=== PATIENT | female | born 1950 | race Caucasian/White ===

== ENCOUNTER 2016-10-31 02:12 | Inpatient (IN) | payer OTHER ==
[~2016-10-31] VITALS: Ht 162.6 cm; Wt 99.8 kg
[~2016-10-31 02:12] MED LIST: ADVAIR 250-501 EACH INH; ASPIRIN325 M2 PO; ATIVAN1 M1 PO; CARDIZEM CD180 M1 PO; DOCUSATE SODIU100 M3 PO; GLUCOPHAGE500 M1 PO; HYDROMORPHONE HC2 M1 PO; LEXAPRO10 M1 PO; LISINOPRIL5 M1 PO; METFORMIN HCL500 M4 PO; MIRALAX119 GM PO; MS CONTIN15 M2 PO; MULTI-DAY VITA1 EACH PO; NASACORT16.9 ML NASB; TRAMADOL HCL50 M1 PO; TUMS; VITAMIN D2000 UNI1 PO; WELLBUTRIN75 M1 PO
--- NOTE | 2016-10-31 10:16 | Patient Discharge Instructions ---
Discharge Instructions General Discharge Information You were seen/treated for: joint pain You had these procedures: Left total knee replacement No bath, but you may shower: Yes Other wound care: Keep incisions clean and dry, may shower, no bathing Diet Recommended Diet: Diabetic, Heart Healthy Activity Activity Self Limited: Yes Activity Limited to: Weight bear as tolerated Acute Coronary Syndrome Inclusion Criteria At DC or during hospital stay patient has or had the following: ACS DIAGNOSIS No Discharge Core Measures Meds if any: Prescribed or Continued at Discharge Meds if any: NOT Prescribed or Continued at Discharge Congestive Heart Failure Inclusion Criteria At DC or during hospital stay patient has or had the following: CHF DIAGNOSIS No Discharge Core Measures Meds if any: Prescribed or Continued at Discharge Meds if any: NOT Prescribed or Continued at Discharge Cerebrovascular accident Inclusion Criteria At DC or during hospital stay patient has or had the following: CVA/TIA Diagnosis No Discharge Core Measures Meds if any: Prescribed or Continued at Discharge Meds if any: NOT Prescribed or Continued at Discharge Venous thromboembolism Inclusion Criteria VTE Diagnosis No VTE Type NONE VTE Confirmed by (Test) NONE Discharge Core Measures - Per Current guidelines, there needs to be overlap - treatment for the first 5 days of Warfarin therapy. - If discharged on Warfarin prior to 5 days of - overlap therapy, the patient will need to be - assessed for post discharge needs including - *Post discharge parental anticoagulation - *Warfarin and/or parental anticoagulation education - *Follow up date to check INR post discharge At least 5 days overlap therapy as Inpatient No Meds if any: Prescribed or Continued at Discharge Note: Overlap Therapy is Warfarin and Anticoagulant Meds if any: NOT Prescribed or Continued at Discharge
--- NOTE | 2016-10-31 10:29 | Admission Core Measures ---
Admission Meds I reviewed the following Meds: Current Medications Sig/Mariano Start time Last Medication Dose Stop Time Status Admin Acetaminophen 975 MG ONCE 10/31 NR (Tylenol) 10/31 2358 Cefazolin Sodium 2,000 MG ONCE 10/31 NR (Kefzol-Ancef Inj) 10/31 2358 Oxycodone HCl 10 MG ONCE 10/31 0000 NR (Roxicodone) 10/31 2358 Acute Coronary Syndrome Inclusion Criteria ACS Diagnosis No Inpatient Core Measures LDL Reminder: If No, please order W/I first 24hr of stay Congestive Heart Failure Inclusion Criteria CHF Diagnosis No Cerebrovascular accident Inclusion Criteria CVA/TIA Diagnosis No Inpatient Core Measures Bedside Swallow Eval Reminder: If BSE failed, place ST order Antithrombotic Reminder: Order Antithrombotic Medication by end of day 2 Antithrombotic Reminder: Document Reason Antithrombotic Not ordered by end of day 2 AFIB/Flutter Reminder: If Present, add to problem list AFIB/Flutter Reminder: Order Anticoag Medication for pts with AFIB/Flutter Atherosclerosis Reminder: If Present, add to problem list LDL Reminder: If No, please order W/I first 24hr of stay PT Order Reminder: If No, please order Venous thromboembolism Inpatient Core Measures VTE Risk Factors: Age > 40, Surgery No [facility] VTE prophylaxis d/t No contraindications No VTE Pharm Prophylaxis d/t No contraindications Inclusion Criteria - Per Current guidelines, there needs to be overlap - treatment for the first 5 days of Warfarin therapy. - Parenteral Anticoagulation (IV or SC) needs to be - given along with Warfarin therapy. VTE Diagnosis No VTE Type NONE VTE Confirmed by (Test) NONE Problem List As ranked by this Provider includes Assessment & Plan 1. Status post total knee replacement, left HOME MEDS Home Med List Aspirin (Aspirin*) 325 MG TABLET 1 TAB PO BID BLOOD THINNER Bupropion HCl (Wellbutrin) 75 MG TABLET 1 TAB PO TID DEPRESSION (Reported) Cholecalciferol (Vitamin D3) (Vitamin D) 2,000 UNIT TABLET 1 TAB PO DAILY SUPPLEMENT (Reported) Diltiazem HCl (Cardizem Cd) 180 MG CAP.ER.24H 1 CAP PO QPM BP (Reported) Escitalopram Oxalate (Lexapro) 10 MG TABLET 1 TAB PO DAILY DEPRESSION ( Reported) Metformin Hydochloride (Glucophage) 500 MG TABLET 1 TAB PO NIGHTLY DM II ( Reported) Triamcinolone Acetonide (Nasacort) 16.9 ML SPRAY 1 SPRAY NASB DAILY ALLERGIES (Reported)
--- NOTE | 2016-10-31 10:31 | Surg Short-stay <48hrs Dis Sum ---
Visit Information Visit Dates Admission Date: 10/31/16 Discharge Date: 11/02/16 Surgical Short Stay DC Summary Admission Diagnosis: joint pain Final Diagnosis: s/p Left TKR Procedure(s): Left tkr - see operative report Summary/Significant Findings: Pt underwent Left TKR by Dr Winters - she tolerated the procedure well and was brought to the PACU in stable condition. Postoperatively, she was able to void spontaneously, her pain was well controlled with oral medication and she worked with PT. She was deemed stable for discharge and was cleared by PT to be discharged home with services. Condition at Discharge: good Discharge Disposition: home health services Discharge instructions provided to patient/family: Yes Post discharge follow-up plan: Dr Winters 6 weeks. Recommend follow up with PCP withini 2 weeks.
[2016-10-31] MEDS ORDERED: TUMS ULTRA400 M1 PO (12:49)
[2016-10-31] MEDS ORDERED: COLACE100 M1 PO (13:02)
[2016-10-31] MEDS ORDERED: ASPIRIN325 M2 PO (13:02)
[2016-10-31] MEDS ORDERED: MS CONTIN15 M2 PO (13:02)
[2016-10-31] MEDS ORDERED: DILAUDID4 M1 PO (13:02)
[2016-10-31] MEDS ORDERED: MIRALAX17 G1 PO (13:02)
--- NOTE | 2016-10-31 13:41 | Operative Report ---
Operative/Inv Procedure Report Surgery Date: 10/31/16 Name of Procedure: Left total knee replacement Pre-Operative Diagnosis: Primary left knee DJD Post-Operative Diagnosis: Same Estimated Blood Loss: 50ml to 100ml Surgeon/Home Aid: RENEE MARLEY,TATA Crawford Anesthesia: block Operative/Procedure Note Note: Description of Procedure: The patient was taken to the operating room and positively identified. After induction of spinal anesthesia and administration of appropriate pre-operative antibiotics, the patient was positioned supine on the operating room table and all bony prominences were well padded. A well-padded pneumatic tourniquet was placed on the left upper thigh. After performing a surgical timeout, the left lower extremity was prepped and draped in the usual sterile fashion. After exsanguination with Esmarch the tourniquet was inflated to 250mm of mercury. A standard medial parapatellar approach was made to the knee. This was carried down through skin and subcutaneous tissue to the level of the fascia. Meticulous hemostasis was maintained with Bovie electrocautery. The extensor mechanism and patellar retinaculum were opened sharply and the patella was everted. The infrapatellar fat was resected in order to improve exposure. Osteophytes were trimmed from the patella and femoral condyles and the patella was re-everted and tucked laterally. A medial release was performed and the cruciate ligaments were resected. The tibia was then subluxed anteriorly. Utilizing the appropriate extra-medullary guide, the proximal tibia was trimmed perpendicular to the long axis of the tibial shaft. Attention was then turned to the femur. After opening the medullary canal, the distal femoral cut was made in 6 degrees of valgus utilizing the appropriate intra-medullary guide. The extension gap was checked and found to be appropriate. The femur was then sized and the remainder of the femoral cuts were made with a size 3 4-in-1 femoral cutting guide. The flexion gap was checked and found to be symmetric and appropriate. The knee was then trialed with a size 3 femoral component, a size 3 tibial component and a size 9 mm polyethylene insert. The patella was trimmed to accept an A 32 patella. This yielded excellent range of motion, stability and patellar tracking. All trial components were removed and the knee was copiously irrigated with sterile saline. All components were cemented into place with Lauren Simplex cement. All the components were of the Lauren Triathlon knee system of the above stated sizes. The knee was again irrigated after cementation. The extensor mechanism and patellar retinaculum were repaired using interrupted #1 vicryl suture. The skin was re-approximated with 2-0 vicryl and closed with bambi. A sterile dressing was applied, the tourniquet was deflated, the patient was awakened and taken to the recovery room in satisfactory condition.
[2016-10-31 16:00] VITALS: BP 120/76
--- NOTE | 2016-10-31 16:00 | NUR ---
PT ARRIVED TO FLOOR VIA STRETCHER FROM PACU, AO, 3LNC, TRANSFERED TO BED, HOOKS IN PLACE, IV INTACT W/ FLUIDS RUNNING, C/O PAIN /10, ONC-Q PUMP IN PLACE @ 10ML/HR. ORIENTED TO ROOM AND CALL LIGHT, ADMISSION COMPLETE. WILL CONTINUE TO MONITOR.
--- NOTE | 2016-10-31 16:00 | PN- Orthopedic ---
Subjective Subjective: poc s/p left tka no major complaints denies cp, sob, no n+v with ice chips onq block in place Objective Vital Signs and I&Os vss Physical Exam: cv: rrr lungs: clear abd: soft ext: distal cms intact drsg dry onq block intact osorio: clear urine Assessment/Plan Assessment/Plan ortho stable plan asa for dvt prophylaxis osorio to gravity til am may be oob to chair/ambulate tonight titrate pain meds home d/c plan Core Measures/Miscellaneous Venous Thromboembolism VTE Risk Factors: Age > 40, Obesity, Surgery VTE Contraindications: No Contraindications VTE Diagnosis: No VTE Type: NONE VTE Confirmed by (Test): NONE Beta Liest Is Beta Liset a Home Med? No Antibiotics Is Patient on Antibiotics? Yes
[2016-10-31 18:12] VITALS: BP 146/92
[2016-10-31 20:04] VITALS: BP 130/90
--- NOTE | 2016-10-31 21:46 | NUR ---
THIS RN ASSUMED CARE OF THIS PATIENT AT 1999. PT A/0 X3. PT ON RA, PAIN MILD PER PT TO L KNEE SX SITE. BRANDEN C/D/I. + CMS. DURACOLD APPLIED OT L KNEE.CALL HAYES WITHIN REACH. WILL FOLLOW
[2016-10-31 22:00] VITALS: BP 130/86
[2016-11-01 02:20] VITALS: BP 120/78
[2016-11-01 06:12] VITALS: BP 124/80
[2016-11-01 08:24] LABS: ABSOLUTE BASOPHIL COUNT 0 /CUMM (0.0-0.2); ABSOLUTE EOSINOPHIL COUNT 0 /CUMM (0.0-0.7); ABSOLUTE GRANULOCYTE CT 11.1 /CUMM (1.4-6.5); ABSOLUTE LYMPH COUNT 1.2 /CUMM (1.2-3.4); BASOPHIL % 0.1 % (0.0-2.0); EOSINOPHIL % 0.1 % (0-5); HEMATOCRIT 39.6 % (37-47); MEAN CORPUSCULAR HGB 30.4 PG (27.0-31.0); MEAN CORPUSCULAR HGB CONC 33.7 G/DL (33.0-37.0); MEAN CORPUSCULAR VOLUME 90.2 FL (81.0-99.0); MEAN PLATELET VOLUME 7.7 FL (7.4-10.4); PLATELET COUNT 180 /CUMM (130-400); RBC DISTRIBUTION WIDTH 13.1 % (11.5-14.5); RED BLOOD CELL CT 4.39 /CUMM (4.20-5.40); WHITE BLOOD CELL COUNT 13.3 /CUMM (4.8-10.8)
--- NOTE | 2016-11-01 09:56 | PN- Orthopedic ---
Subjective Subjective: No acute overnight events reported. Feels well. Pain controlled. Has ambulated. Is voiding. No bm yet. No c/o nausea and vomitting. No c/o chest pain, sob, difficulty breathing. Objective Vital Signs and I&Os Vital Signs Date Time Temp Pulse Resp B/P Pulse O2 O2 Flow FiO2 Ox Delivery Rate 11/01 0612 98.1 90 20 124/80 92 Room Air 11/01 0220 98.1 97 20 120/78 92 Room Air 10/31 2200 98.5 100 20 130/86 91 10/31 2004 98.1 101 20 130/90 91 10/31 1812 98.1 104 20 146/92 90 Room Air 10/31 1600 Nasal 3.0L Cannula 10/31 1600 98.3 98 20 120/76 94 Room Air Intake & Output 11/01 1600 11/01 0800 11/01 0000 10/31 1600 10/31 0800 10/31 0000 Intake Total 800 2100 Output Total 1400 1251 Balance -600 849 Intake, IV 600 600 Intake, Oral 200 1500 Output, 1 Emesis Output, Urine 1400 1250 Patient 220 lb Weight Physical Exam: General: Alert and oriented x3, no acute distress Cardiac; RRR, s1s2 Pulm: CTA bilaterally Abdomen: Non-tender, non-distened, +bs Extremities: Moves all extremities, distal sensation intact. Motor 5/5 in plantar and dorsi flexion. Skin warm and well perfused. Dp pulses palpable bilaterally. Calves soft and non-tender bilaterally. Surgical site: Left knee, on q in place, dressing dry and intact. Assessment/Plan Assessment/Plan This is a 65 year old female, POD 1, s/p Left tkr. Doing well. -Continue home meds -Continue current pain regimen -ASA 325 bid for dvt ppx -OOB with pt, wbat -Colace and miralax for bowel regimen -Incentive spirometry encouraged -Dispo planning: home in 2-3 days post op Core Measures/Miscellaneous Venous Thromboembolism VTE Risk Factors: Age > 40, Obesity, Surgery VTE Contraindications: No Contraindications VTE Diagnosis: No VTE Type: NONE VTE Confirmed by (Test): NONE Beta Liset Is Beta Liset a Home Med? No Antibiotics Is Patient on Antibiotics? Yes
[2016-11-01 10:18] VITALS: BP 120/80
[2016-11-01 10:33] LABS: GRANULOCYTE % 83.1 % (42.2-75.2)
[2016-11-01 14:05] VITALS: BP 120/80
[2016-11-01 18:18] VITALS: BP 160/98
[2016-11-01 22:00] VITALS: BP 160/80
[2016-11-02 00:45] VITALS: BP 148/62
--- NOTE | 2016-11-02 07:19 | PN- Orthopedic ---
Subjective Subjective: pod#2 s/p left tka knee pain better controlled with iv toradol radhikaeis cp, sob, no n+v with diet tolerating diet ambulating well with pt Objective Vital Signs and I&Os Vital Signs Date Time Temp Pulse Resp B/P B/P Pulse O2 O2 Flow FiO2 Mean Ox Delivery Rate / 0045 148/62 11/01 2200 99.0 100 20 160/80 95 Room Air 11/01 1818 99.5 92 20 160/98 92 Room Air 11/01 1405 97.7 88 20 120/80 93 11/01 1018 98.8 68 20 120/80 96 Intake & Output / 0800 11/02 0000 11/01 1600 11/01 0800 11/01 0000 10/31 1600 Intake Total 769 604 2711 800 2100 Output Total 328 510 3173 1400 1251 Balance -400 -50 -100 -600 849 Intake, IV 150 600 600 Intake, Oral 120 067 8465 200 1500 Number 0 Bowel Movements Output, 1 Emesis Output, Urine 453 816 5539 1400 1250 Patient 220 lb Weight Physical Exam: cv: rrr lungs: clear abd: soft, +bs ext: no calf tenderness bilat drsg changed: wound c/d/i distal cms intact Assessment/Plan Assessment/Plan ortho stable plan cont oob with pt titrate pain meds asa for dvt prophylaxis home d/c planning Core Measures/Miscellaneous Venous Thromboembolism VTE Risk Factors: Age > 40, Obesity, Surgery VTE Contraindications: No Contraindications VTE Diagnosis: No VTE Type: NONE VTE Confirmed by (Test): NONE Beta Liset Is Beta Liset a Home Med? No Antibiotics Is Patient on Antibiotics? Yes
[2016-11-02] MEDS ORDERED: KETOROLAC TROME10 M1 PO (07:22)
[2016-11-02 08:25] VITALS: BP 142/76
== END 2016-11-02 13:15 | disposition home health service (06) | DRG 470 ==
LOC: ENRESERVTM → ENRESERVDT → SDA 02:12 → 2NA 16:01 → ENPENDDIS 11-02 07:32 → 2NA 11-02 13:15
PROVIDERS: Physician Assistant Surgical; ADMIT Orthopaedic Surgery
PROC: 0SRD0J9 Replacement of Left Knee Joint with Synthetic Substitute, Cemented, Open Approach (ICD-10-PCS; principal; 2016-10-31)
DX: M17.12 Unilateral primary osteoarthritis, left knee (principal); E66.01 Morbid (severe) obesity due to excess calories; I10 Essential (primary) hypertension; R73.02 Impaired glucose tolerance (oral); E55.9 Vitamin D deficiency, unspecified; E53.8 Deficiency of other specified B group vitamins; Z79.82 Long term (current) use of aspirin
CPT/HCPCS: 2NASP; 82436; 87086; 88305; 97110-GO; 97116-GO; 97161-GP; 97530-GO; C1713; J0690; J1100; J1170; J1815; J1885; J2405; J2795; J7042

== ENCOUNTER → 2017-01-02 | Day surgery (SDC) | payer OTHER ==
[~2017-01-02] MED LIST changes: +COLACE100 M1 PO; +DILAUDID4 M1 PO; +KETOROLAC TROME10 M1 PO; +MIRALAX17 G1 PO; +TUMS ULTRA400 M1 PO
--- NOTE | 2017-01-02 14:33 | Operative Report ---
Operative/Inv Procedure Report Surgery Date: 01/02/17 Name of Procedure: Left knee manipulation under anesthesia Pre-Operative Diagnosis: Left knee stiffness Post-Operative Diagnosis: Same Estimated Blood Loss: n/a Surgeon/High School Tutor: TATA DURAN MD Anesthesia: laryngeal mask airway Operative/Procedure Note Note: The patient was taken to the operating room and positively identified. After induction of anesthesia she was placed supine on the operating room table and all bony prominences well-padded. Prior to manipulation her range of motion was nearly full extension to about 80. Utilizing gentle but firm pressure over the tibial tubercle the knee was flexed. Audible release of scar tissue was noted. Following the manipulation her flexion was at least 110. Her knee was prepped sterilely and injected with a mixture of 2 mL of Depo-Medrol and 8 mL of half percent Marcaine. A Band-Aid was placed over the injection site. The patient was awakened and taken to the recovery room in satisfactory condition.
== END ==
LOC: STS 03:32
DX: M25.662 Stiffness of left knee, not elsewhere classified (principal); I10 Essential (primary) hypertension; Z96.652 Presence of left artificial knee joint
CPT/HCPCS: J1030; J2250; J2405